=== PATIENT | female | born 1970 | race Two or more races ===

== ENCOUNTER 2020-06-02 19:15 | Emergency (ER) | payer OTHER ==
--- NOTE | 2020-06-02 19:32 | EDM.PDOC ---
ED HPI GENERAL MEDICAL PROBLEM - General Chief Complaint: Upper Extremity Injury/Pain Stated Complaint: RT ELBOW INJURY Time Seen by Provider: 06/02/20 19:16 Source of Information: Reports: Patient History Limitations: Reports: No Limitations - History of Present Illness INITIAL COMMENTS - FREE TEXT/NARRATIVE: HISTORY AND PHYSICAL: History of present illness: Patient is a 50-year-old female who presents to the emergency room with complaints of right elbow pain. She states while leaving the grocery store her arm got caught in an automatic door. Her right elbow was pinched in the door and she felt a "crack" and is concerned that she may have a fracture. She denies any other extremity involvement. Denies any head injury or loss of consciousness. She offers no systemic complaints. Review of systems: As per history of present illness and below otherwise all systems reviewed and negative. Past medical history: As per history of present illness and as reviewed below otherwise noncontributory. Surgical history: As per history of present illness and as reviewed below otherwise noncontributory. Social history: See social history for further information Family history: As per history of present illness and as reviewed below otherwise noncontributory. Physical exam: General: Well developed and well nourished. Alert and orientated x 3. Nontoxic in appearance and in no acute distress. Vital signs are stable and have been reviewed by me. Nursing notes were reviewed. HEENT: Atraumatic, normocephalic, pupils equal and reactive bilaterally, negative for conjunctival pallor or scleral icterus, mucous membranes moist, TMs normal bilaterally, throat clear, neck supple, nontender, trachea midline. No drooling or trismus noted. No meningeal signs. No hot potato voice noted. Lungs: Clear to auscultation bilaterally. No wheezes, rales, or rhonchi. Chest nontender. Normal work of breathing, no accessory muscles used. Heart: S1S2, regular rate and rhythm without overt murmur, gallops, or rubs. No JVD. No peripheral edema Abdomen: Soft, nondistended, nontender. Normoactive bowel sounds. Negative for masses or costovertebral tenderness. Pelvis: Stable nontender. Genitourinary/Rectal: Deferred. Skin: Early bruising noted around olecranon. Remaining skin is intact, warm, dry. No lesions or rashes noted. Hematologic: No petechiae or purpra. Mucosa appropriate color and normal nail bed color and refill. Extremities: Tenderness over the right elbow, no soft tissue. Otherwise she moves all extremities per self without difficulty or deficits, strong radial pulse. Cap refill less than 3 seconds. Good/strong grasps. Neurovascular unremarkable. Neuro: Awake, alert, oriented. Cranial nerves II through XII unremarkable. Cerebellum unremarkable. Motor and sensory unremarkable throughout. Exam nonfocal. Psychiatric: Mood and affect are appropriate. Normal thought process. Answering questions appropriately. Notes: *This patient was seen and evaluated during the 2019 SARS-CoV-2 novel coronavirus pandemic period. Community viral transmission is ongoing at time of this encounter and the emergency department is operating under pandemic response procedures. X-ray shows cortical irregularity of the medial epicondyle. This could represent an acute fracture, and old fracture, or an old injury of the ulnar collateral ligament. There is no significant soft tissue swelling in this region. Given the patient's exam and recent injury, will treat as a fracture. 1/2 cast fiberglass splint and sling applied/fitted for patients comfort and support. I have talked with the patient about today's findings, in addition to providing specific details for plan of care. Reassessment at the time of disposition demonstrates that the patient is in no acute distress. The patient is stable for discharge, counseling was provided and we discussed in great detail signs and symptoms that would prompt them to return to the Emergency Department. Encouraged to follow up with orthopedics, to call Friday to set up appointment. Medication, follow up and supportive care measures were reviewed and discussed. Voices understanding and is agreeable to plan of care. Denies any further questions or concerns at this time. Diagnostics: Right elbow x-ray Therapeutics: 1/2 cast fiberglass splint, sling Prescription: [facility] Impression: Medial epicondyle fracture, right Plan: 1. Rest, ice, elevate the affected extremity. Please wear the splint as directed. 2. Tylenol and/or Ibuprofen as needed for pain management. 3. Follow up with the Orthopedic provider as we discussed. Return to the ED as needed and as discussed. Definitive disposition and diagnosis as appropriate pending reevaluation and review of above. R elbow Pain Score (Numeric/FACES): 5 - Related Data Allergies Allergy/AdvReac Type Severity Reaction Status Date / Time adhesive Allergy Other Verified 02/05/21 19:30 azithromycin Allergy Other Verified 06/02/20 19:30 cephalexin [From Keflex] Allergy Other Verified 06/02/20 19:30 oxycodone Allergy Other Verified 06/02/20 19:30 tramadol Allergy Other Verified 06/02/20 19:30 Home Meds: Home Meds Cyclobenzaprine [Flexeril] 10 mg PO TID PRN 06/02/20 [History] Hydrocodone/Acetaminophen [Hydrocodone-Acetamin 5-325 mg] 1 tab PO Q4HR PRN #20 tablet 06/02/20 [Rx] Metoprolol Succinate [Toprol XL] 25 mg PO DAILY 06/02/20 [History] estradioL [Estradiol] 1 mg PO DAILY 06/02/20 [History] lisinopriL [Lisinopril] 10 mg PO DAILY 06/02/20 [History] Review of Systems - Review of Systems Review Of Systems: Comprehensive ROS is negative, except as noted in HPI. ED EXAM, GENERAL - Physical Exam Exam: See Below (See dictation) Course - Vital Signs Last Recorded V/S: Last Vital Signs Temp 97.8 F 06/02/20 19:32 Pulse 86 06/02/20 19:32 Resp 18 06/02/20 19:32 BP 160/103 H 06/02/20 19:32 Pulse Ox 99 06/02/20 19:32 - Orders/Labs/Meds Orders: Active Orders 24 hr Category Date Time Status DME for Discharge [COMM] Stat Oth 06/02/20 20:20 Ordered Departure - Departure Time of Disposition: 20:24 Disposition: Home, Self-Care 01 Clinical Impression: Closed fracture of medial epicondyle of right humerus Qualifiers: Encounter type: initial encounter Fracture morphology: unspecified fracture morphology Fracture alignment: nondisplaced Qualified Code(s): S42.444A - Nondisplaced fracture (avulsion) of medial epicondyle of right humerus, initial encounter for closed fracture - Discharge Information Prescriptions: Hydrocodone/Acetaminophen [Hydrocodone-Acetamin 5-325 mg] 1 tab PO Q4HR PRN #20 tablet PRN Reason: Pain Instructions: Elbow Fracture Treated With ORIF Referrals: PCP,Not In Area [Primary Care Provider] - Forms: ED Department Discharge Additional Instructions: The following information is given to patients seen in the emergency department who are being discharged to home. This information is to outline your options for follow-up care. We provide all patients seen in our emergency department with a follow-up referral. The need for follow-up, as well as the timing and circumstances, are variable depending upon the specifics of your emergency department visit. If you don't have a primary care physician on staff, we will provide you with a referral. We always advise you to contact your personal physician following an emergency department visit to inform them of the circumstance of the visit and for follow-up with them and/or the need for any referrals to a consulting specialist. The emergency department will also refer you to a specialist when appropriate. This referral assures that you have the opportunity for follow-up care with a specialist. All of these measure are taken in an effort to provide you with optimal care, which includes your follow-up. Under all circumstances we always encourage you to contact your private physician who remains a resource for coordinating your care. When calling for follow-up care, please make the office aware that this follow-up is from your recent emergency room visit. If for any reason you are refused follow-up, please contact the [facility] Emergency Department at and asked to speak to the emergency department charge nurse. [facility] [address] [place], [place] [id number] [place] [address] Thank you for choosing the [facility] emergency department in [place] for your medical needs today. It was a pleasure caring for you. Today you were seen in the emergency department for elbow injury. 1. X-ray shows a suspected medial epicondyle fracture. Rest, ice, elevate the affected extremity. Please wear the splint as directed. 2. Tylenol and/or Ibuprofen as needed for pain management. 3. Follow up with the Orthopedic provider as we discussed. Return to the ED as needed and as discussed. Sepsis Event Note (ED) - Focused Exam Vital Signs: Vital Signs Temp Pulse Resp BP Pulse Ox 06/02/20 19:32 97.8 F 86 18 160/103 H 99 - My Orders Last 24 Hours: My Active Orders 06/02/20 20:20 DME for Discharge [COMM] Stat - Assessment/Plan Last 24 Hours: My Active Orders 06/02/20 20:20 DME for Discharge [COMM] Stat
--- NOTE | 2020-06-02 20:13 | CR ---
Indication: Crush injury Technique: Four views right elbow Comparison: None Findings: Bones: Alignment is normal. There is cortical irregularity of the medial epicondyle. Joint spaces: Unremarkable. Soft tissues: No significant soft tissue swelling. No elbow effusion. Impression: Cortical irregularity of the medial epicondyle. This could represent an acute fracture, and old fracture, or an old injury of the ulnar collateral ligament. There is no significant soft tissue swelling in this region. Consider CT for further evaluation. Dictated by Karen Edwards MD @ Jun 02 2020 8:12PM Signed by Dr. Karen Edwards @ Jun 02 2020 8:12PM
== END 2020-06-02 20:51 | disposition home or self-care (01) ==
LOC: MW.ED 19:15
DX: S42.444A Nondisplaced fracture (avulsion) of medial epicondyle of right humerus, initial encounter for closed fracture (principal); Z91.048 Other nonmedicinal substance allergy status; Z88.1 Allergy status to other antibiotic agents; Z88.5 Allergy status to narcotic agent; Z79.899 Other long term (current) drug therapy; W23.0XXA Caught, crushed, jammed, or pinched between moving objects, initial encounter; Y92.512 Supermarket, store or market as the place of occurrence of the external cause
CPT/HCPCS: 29105; 73080-26-RT; 73080-RT; 99283; 99283-25